=== PATIENT | male | born 1970 | race Caucasian/White ===

== ENCOUNTER 2019-08-15 10:45 | Outpatient (CLI) | payer MEDICAID | END 2019-08-15 23:59 | disposition home or self-care (01) | LOC: VAS 10:45 | PROVIDERS: ATTEND Physician Assistant | DX: I82.511 Chronic embolism and thrombosis of right femoral vein (principal); I82.531 Chronic embolism and thrombosis of right popliteal vein; I82.541 Chronic embolism and thrombosis of right tibial vein | CPT/HCPCS: 93971 ==

== ENCOUNTER 2019-08-19 22:03 | Emergency (ER) | payer MEDICAID ==
[~2019-08-19] VITALS: Ht 172.7 cm; Wt 90.8 kg
[2019-08-19] MEDS ORDERED: HYDROcodone/acetaminophen 5mg/325mg tablet PO ONE (23:20)
--- NOTE | 2019-08-20 00:07 | NUR ---
VASCULAR AT BEDSIDE
[2019-08-20 01:15] VITALS: BP 113/66
== END 2019-08-20 01:17 | disposition home or self-care (01) ==
LOC: ER 22:04
DX: M79.601 Pain in right arm (principal); G81.91 Hemiplegia, unspecified affecting right dominant side; R60.0 Localized edema; I10 Essential (primary) hypertension; Z86.69 Personal history of other diseases of the nervous system and sense organs; Z86.718 Personal history of other venous thrombosis and embolism; Z86.73 Personal history of transient ischemic attack (TIA), and cerebral infarction without residual deficits; Z87.891 Personal history of nicotine dependence
CPT/HCPCS: 93971; 99284